=== PATIENT | female | born 2000 | race Caucasian/White ===

== ENCOUNTER 2023-10-26 10:06 | Inpatient (IN) | payer BC, SELFPAY ==
[2023-10-26] VITALS (17 sets, daily range): BP systolic 111–126; BP diastolic 56–78; PULSE 70–96; RESP 16; TEMP 36.2–36.7; O2SAT 98–100; BMI 28.1
[2023-10-26 10:06] LABS: ROM Internal Control Test YES-OK TO RESULT pt. (Internal QC)
[2023-10-26 10:08] LABS: ROM Patient Test POSITIVE (Negative); Record Kit Lot#, ROM+ K1374
[2023-10-26] MEDS: 0.9% Saline Lock 10 ML Syringe IV (10:20)
[2023-10-26 10:31] LABS: Mucous, Urine 0 SEEN /hpf (<or=2+)
[2023-10-26 10:37] LABS: Absolute Lymphocyte Count 1.52 X10^3/uL (0.83-4.51); Absolute Neutrophil Count 15.2 X10^3/uL (2.0-7.7); Basophil# 0.05 X10^3/uL; Basophil% 0.3 % (0-1); Hematocrit 32.3 % (37-47); Hemoglobin 10.4 g/dL (12.0-15.0); Lymphocyte # 1.52 X10^3/ul (0.83-4.51); Lymphocyte % 8.3 % (19-41); Mean Corp Hgb Conc 32.2 g/dL (32-36); Mean Corpuscular Hgb 27.7 pg (27.0-32.0); Mean Corpuscular Volume 85.9 fL (81-99); Mean Platelet Vol. 12.8 fl (6.2-12.0); Monocyte# 1.28 X10^3/uL; NRBC Flagged by Analyzer 0 % (0-5); Neutrophil # 15.22 X10^3/uL (2.7-7.7); Neutrophil % 83.6 % (47-70); Platelet Count 202 K/mm3 (150-450); RBC Distribution Width CV 13.9 % (11.6-14.6); RBC Distribution Width SD 42.8 fl (35.1-43.9); Red Blood Count 3.76 M/mm3 (4.2-5.4); White Blood Count 18.2 K/mm3 (4.4-11.0)
[2023-10-26 10:45] LABS: Color, Urine Yellow (Yellow); Glucose, Dipstick Normal (Normal); Leukocyte Esterase-Dipstick 500 /ul (Negative); Nitrite-Dipstick Negative (Negative); Occult Blood-Urine 250 /ul (Negative); Protein-Dipstick 30 mg/dl (Negative); Specific Gravity, Urine 1.015 (1.002-1.030); Urine Bilirubin Dipstick Negative (Negative); Urine Clarity Sl. Cloudy (Clear); Urine Urobilinogen Normal (Normal)
[2023-10-26 10:47] LABS: Ketone-Dipstick 150 mg/dl (Negative)
[2023-10-26 10:54] LABS: Bacteria 1+ /hpf (None Seen); Red Blood Cells-Urine 25-50 SEEN /hpf (0-5); Squamous Epithelial Cells - UA 0-5 SEEN /hpf (5-10); White Blood Cells 25-50 SEEN /hpf (0-5)
[2023-10-26 11:05] LABS: Amphetamine Urine VISTA NEGATIVE (<1000 ng/mL); Barbiturate Urine VISTA NEGATIVE (< 200 ng/mL); Benzodiazepine Urine VISTA NEGATIVE (< 200 ng/mL); Cocaine Urine VISTA NEGATIVE (< 300 ng/mL); Ecstacy Urine VISTA NEGATIVE (< 500 ng/mL); Methadone Urine VISTA NEGATIVE (< 300 ng/mL); PCP Urine VISTA NEGATIVE (< 25 ng/mL); THC Urine VISTA NEGATIVE (< 50 ng/mL); Vista UDS pH Range 5
[2023-10-26 11:18] LABS: HIV - WCH Non-Reactive (Nonreactive); Rubella IgG Reactive (Nonreactive); Syphilis Antibodies Non-reactive
[2023-10-26 11:43] LABS: Hepatitis C Antibody Non-Reactive (Nonreactive)
--- NOTE | 2023-10-26 13:18 | PN.OBGYN_ITS ---
Subjective Subjective Patient seen at bedside. Using nitrous for pain control. Objective Data Objective Data Vital Signs: Vital Signs Temp Pulse Resp BP Pulse Ox 97.9 F 83 16 117/61 100 10/26/23 13:07 10/26/23 11:22 10/26/23 12:00 10/26/23 11:22 10/26/23 10:31 Weight: 180 lb Body Mass Index (BMI) 28.1 Lab / Micro Data 10/26/23 10:20 Labs: Laboratory Results - last 24 hr 10/26/23 09:45: Vag Amniotic Fld Detect POSITIVE H 10/26/23 10:20: WBC 18.2 H, RBC 3.76 L, Hgb 10.4 L, Hct 32.3 L, MCV 85.9, MCH 27.7, MCHC 32.2, RDW Std Deviation 42.8, RDW Coeff of Romana 13.9, Plt Count 202, MPV 12.8 H, Immature Gran % (Auto) 0.800, Neut % (Auto) 83.6 H, Lymph % (Auto) 8.3 L, [place] % (Auto) 7.0, Eos % (Auto) 0.0, Baso % (Auto) 0.3, Absolute Neuts (auto) 15.2 H, Absolute Lymphs (auto) 1.52, Nucleated RBC % 0, Urine Color Yellow, Urine Clarity Sl. Cloudy, Urine pH 5.0, Ur Specific [place] 1.015, Urine Protein 30 H, Urine Glucose (UA) Normal, Urine Ketones 150 A*, Urine Occult Blood 250 H, Urine Nitrite Negative, Urine Bilirubin Negative, Urine Urobilinogen Normal, Ur Leukocyte Esterase 500 H, Urine RBC 25-50 SEEN, Urine WBC 25-50 SEEN, Ur Squamous Epith Cells 0-5 SEEN, Urine Bacteria 1+, Urine Mucus 0 SEEN, Urine Opiates Screen NEGATIVE, Urine Methadone Screen NEGATIVE, Ur Barbiturates Screen NEGATIVE, Ur Phencyclidine Scrn NEGATIVE, Ur Amphetamines Screen NEGATIVE, MDMA (Ecstasy) Screen NEGATIVE, U Benzodiazepines Scrn NEGATIVE, Urine Cocaine Screen NEGATIVE, U Cannabinoids Screen NEGATIVE, Ur Drug Screen Comment , Syphilis Total Ab Non-reactive 10/26/23 10:20: Syphilis Total Ab Cancelled, Hepatitis C Antibody Non-Reactive, HIV 1&2 Antibody Non-Reactive, Rubella IgG Antibody Reactive, Blood Type A POSITIVE, Antibody Screen NEGATIVE Micro: Microbiology 10/26/23 10:20 Interface Orders Chlamydia trachomatis (PCR) - Final 10/26/23 10:20 Interface Orders Neisseria gonorrhoeae (PCR) - Final Assessment & Plan (1) 41 weeks gestation of : (2) Spontaneous onset of labor: (3) Spontaneous rupture of amniotic membranes: PLAN: Plan GBS unknown NST reactive CE Forebag ruptured for clear fluid Using nitrous oxide for pain control Anticipate Dr. Conklin on unit to evaluate patient at bedside
[2023-10-26] MEDS: Oxytocin 10 UNITS/ML Vial IM (14:00)
--- NOTE | 2023-10-26 14:07 | HP.PCM.OB_ITS ---
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 today this morning and has been about 6cm since 7am. pt reports has had 4 ultrasounds during , denies any medical conditions, does not take any medications. PFSH PFSH Medical History no medical history Allergy/AdvReac Type Severity Reaction Status Date / Time No Known Allergies Allergy Verified 10/26/23 09:48 Surgical History (Updated 10/26/23 @ 10:25 by Judy Kay) History of surgery Vital Signs Vital Signs Vital Signs: 10/26/23 09:50 10/26/23 09:50 10/26/23 10:21 Temperature Temperature Source Pulse Rate 80 96 Respiratory Rate Blood Pressure 118/62 BP Systolic 118 BP Diastolic 62 Pulse Ox 10/26/23 10:21 10/26/23 10:26 10/26/23 10:26 Temperature Temperature Source Pulse Rate 83 Respiratory Rate Blood Pressure BP Systolic BP Diastolic Pulse Ox 98 98 10/26/23 10:31 10/26/23 10:31 10/26/23 11:09 Temperature Temperature Source Temporal Pulse Rate 85 Respiratory Rate Blood Pressure BP Systolic BP Diastolic Pulse Ox 100 10/26/23 11:09 10/26/23 11:22 10/26/23 11:22 Temperature 97.8 F Temperature Source Pulse Rate 83 Respiratory Rate Blood Pressure 117/61 BP Systolic 117 BP Diastolic 61 Pulse Ox 10/26/23 12:00 10/26/23 12:00 10/26/23 12:00 Temperature 97.1 F L Temperature Source Temporal Pulse Rate Respiratory Rate 16 Blood Pressure BP Systolic BP Diastolic Pulse Ox 10/26/23 13:07 10/26/23 13:07 Temperature 97.9 F Temperature Source Temporal Pulse Rate Respiratory Rate Blood Pressure BP Systolic BP Diastolic Pulse Ox Weight Weight: 81.647 kg Body Mass Index (BMI) 28.1 Physical Exam Narrative upon my arrival pt was 10/100/+2 EFW 7.5lbs Const alert and oriented x3 General Appearance: cooperative HEENT normocephalic GI GI Narrative: Gravid, non tender to palpation. OB / External & Speculum: external exam normal Extremity normal to inspection Skin no rashes or lesions noted Neuro oriented x3 and CN's II-XII intact bilaterally Psych Appearance: grossly normal Labs Labs Labs: Blood Type A POSITIVE Antibody Screen NEGATIVE Hct 32.3 % (37-47) L Hgb 10.4 g/dL (12.0-15.0) L Syphilis Total Ab Non-reactive Rubella IgG Antibody Reactive (Nonreactive) Hepatitis C Antibody Non-Reactive (Nonreactive) HIV 1&2 Antibody Non-Reactive (Nonreactive) Assessment & Plan (1) Spontaneous rupture of amniotic membranes: (2) Spontaneous onset of labor: (3) 41 weeks gestation of : (4) No care in current in third trimester: PLAN: Plan Admit to L&D Montior FHR/TOCO Epidural if requested for pain Monitor VS Anticipate labs
--- NOTE | 2023-10-26 14:10 | OP.PCM_ITS ---
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 The baby was then placed on the mother's chest for immediate skin to skin. Delayed cord clamping was performed until the cord was then pulsating per mother's request. The infant was vigorous at time of delivery. The cord was then clamped and cut. IM Pitocin was given. The placenta was delivered intact without complication. Vagina and perineum were intact. No other complications Presentation: Vertex Amniotic Membrane Rupture Type: Spontaneous Amniotic Fluid Description: Clear Placental Delivery Description: Spontaneous Placenta Disposition: patient wants to take home Specimen(s) Removed: placenta Cord Vessel Description: 3 Vessels Cord Entanglement: None A Gender: Female (1 minute): 8 (5 minute): 9 Delayed Cord Clamping: Yes Post Vaginal Delivery Medications Given After Delivery: IM Pitocin Episiotomy Description: None Laceration: None Complication Complications: None
[2023-10-27 01:06] VITALS: BP 114/68; PULSE 66; RESP 16; TEMP 36.6
[2023-10-27 04:53] VITALS: BP 121/70; PULSE 79; RESP 16; TEMP 36.7
--- NOTE | 2023-10-27 08:33 | PCM.PN.CNM ---
Subjective Subjective Patient seen at bedside. Denies pain. Ambulating and voiding without difficulty. with minimal support. Lochia decreasing. Anticipate discharge home tomorrow. Objective Data Objective Data Vital Signs: Vital Signs Temp Pulse Resp BP Pulse Ox 98.1 F 79 16 121/70 H 100 10/27/23 04:53 10/27/23 04:53 10/27/23 04:53 10/27/23 04:53 10/26/23 10:31 Weight: 180 lb Body Mass Index (BMI) 28.1 Intake & Output: Intake and Output for Last 24 Hours 10/25/23 10/26/23 10/27/23 23:59 23:59 23:59 Output Total 1350 / 1350 Balance -1350 / -1350 Lab / Micro Data 10/26/23 10:20 Labs: Laboratory Results - last 24 hr 10/26/23 09:45: Vag Amniotic Fld Detect POSITIVE H 10/26/23 10:20: WBC 18.2 H 10/26/23 10:20: WBC Cancelled, Corrected WBC Cancelled, RBC 3.76 L 10/26/23 10:20: RBC Cancelled, Hgb 10.4 L 10/26/23 10:20: Hgb Cancelled, Hct 32.3 L 10/26/23 10:20: Hct Cancelled, MCV 85.9 10/26/23 10:20: MCV Cancelled, MCH 27.7 10/26/23 10:20: MCH Cancelled, MCHC 32.2 10/26/23 10:20: MCHC Cancelled, RDW Std Deviation 42.8 10/26/23 10:20: RDW Std Deviation Cancelled, RDW Coeff of Romana 13.9 10/26/23 10:20: RDW Coeff of Romana Cancelled, Plt Count 202 10/26/23 10:20: Plt Count Cancelled, MPV 12.8 H 10/26/23 10:20: MPV Cancelled, Immature Gran % (Auto) 0.800 10/26/23 10:20: Immature Gran % (Auto) Cancelled, Neut % (Auto) 83.6 H 10/26/23 10:20: Neut % (Auto) Cancelled, Lymph % (Auto) 8.3 L 10/26/23 10:20: Lymph % (Auto) Cancelled, [place] % (Auto) 7.0 10/26/23 10:20: [place] % (Auto) Cancelled, Eos % (Auto) 0.0 10/26/23 10:20: Eos % (Auto) Cancelled, Baso % (Auto) 0.3 10/26/23 10:20: Baso % (Auto) Cancelled, Absolute Neuts (auto) 15.2 H 10/26/23 10:20: Absolute Neuts (auto) Cancelled, Absolute Lymphs (auto) 1.52 10/26/23 10:20: Absolute Lymphs (auto) Cancelled, Total Counted Cancelled, Neutrophils % (Manual) Cancelled, Band Neutrophils % Cancelled, Lymphocytes % (Manual) Cancelled, Monocytes % (Manual) Cancelled, Eosinophils % (Manual) Cancelled, Basophils % (Manual) Cancelled, Metamyelocytes % Cancelled, Myelocytes % Cancelled, Promyelocytes % Cancelled, Blast Cells % Cancelled, Plasma Cell % (Manual) Cancelled, Other Cells % Cancelled, Nucleated RBC % 0 10/26/23 10:20: Nucleated RBC % Cancelled, Nucleated RBCs/100 WBC Cancelled, Differential Comment Cancelled, Diff Path Review Cancelled, Hypersegmented Neuts Cancelled, Atypical Lymphocytes Cancelled, Reactive Lymphocytes Cancelled, Smudge Cells Cancelled, Toxic Granulation Cancelled, Toxic Vacuolation Cancelled, Dohle Bodies Cancelled, Jairo Rods Cancelled, Platelet Estimate Cancelled, Plt Morphology Comment Cancelled, RBC Morphology Cancelled 10/26/23 10:20: RBC Morphology Cancelled, Polychromasia Cancelled, Hypochromasia Cancelled, Basophilic Stippling Cancelled, Anisocytosis Cancelled, Microcytosis Cancelled, Macrocytosis Cancelled, Spherocytes Cancelled, Sickle Cells Cancelled, Target Cells Cancelled, Tear Drop Cells Cancelled, Ovalocytes Cancelled, Stomatocytes Cancelled, [employer] Bodies Cancelled, Obdulio Cells Cancelled, Bite Cells Cancelled, Crenated Cell Cancelled, Acanthocytes (Spur) Cancelled, Rouleaux Cancelled, Schistocytes Cancelled, Urine Color Yellow, Urine Clarity Sl. Cloudy, Urine pH 5.0, Ur Specific [place] 1.015, Urine Protein 30 H, Urine Glucose (UA) Normal, Urine Ketones 150 A*, Urine Occult Blood 250 H, Urine Nitrite Negative, Urine Bilirubin Negative, Urine Urobilinogen Normal, Ur Leukocyte Esterase 500 H, Urine RBC 25-50 SEEN, Urine WBC 25-50 SEEN, Ur Squamous Epith Cells 0-5 SEEN, Urine Bacteria 1+, Urine Mucus 0 SEEN, Urine Opiates Screen NEGATIVE, Urine Methadone Screen NEGATIVE, Ur Barbiturates Screen NEGATIVE, Ur Phencyclidine Scrn NEGATIVE, Ur Amphetamines Screen NEGATIVE, MDMA (Ecstasy) Screen NEGATIVE, U Benzodiazepines Scrn NEGATIVE, Urine Cocaine Screen NEGATIVE, U Cannabinoids Screen NEGATIVE, Ur Drug Screen Comment , Syphilis Total Ab Non-reactive 10/26/23 10:20: Syphilis Total Ab Cancelled, Hepatitis C Antibody Non-Reactive, HIV 1&2 Antibody Non-Reactive, Rubella IgG Antibody Reactive, Blood Type A POSITIVE, Antibody Screen NEGATIVE Micro: Microbiology 10/26/23 10:20 Interface Orders Chlamydia trachomatis (PCR) - Final 10/26/23 10:20 Interface Orders Neisseria gonorrhoeae (PCR) - Final ROS Eyes Eyes: Denies blurry vision, change in vision or spots in vision ENT HEENT: Denies dizziness or headache(s) Cardiovascular Cardiovascular: Denies abdominal pain, chest pain or dyspnea Respiratory/Chest Respiratory/Chest: Denies cough, dyspnea, shortness of breath at rest or shortness of breath with exertion Gastrointestinal Gastrointestinal: Denies abdominal pain, diarrhea or vomiting Genitourinary Genitourinary: Denies change in urinary stream, difficulty urinating or dysuria Musculoskeletal Musculoskeletal: Reports none Integumentary Integumentary: Denies rash Neurologic Neurologic: Denies dizziness, headache(s), memory loss or weakness Physical Exam Const alert and no apparent distress General Appearance: cooperative and comfortable Exam Limitations: no limitations HEENT normocephalic Eyes General Eye: normal appearance of both eyes Neck full ROM General: normal visual inspection Chest Chest: symmetrical chest wall rise Resp normal respiratory effort and normal air movement Effort and Inspection: symmetric chest movement Auscultation: clear to auscultation bilaterally Cardio regular rate and regular rhythm GI normal to inspection, nondistended, normoactive bowel sounds Back/Spine normal ROM Extremity full ROM and no calf tenderness General Extremity: normal exam except as noted Skin no rashes or lesions noted Neuro CN's II-XII intact bilaterally Psych mental status grossly normal Assessment & Plan (1) (spontaneous vaginal delivery): (2) Care and examination of lactating mother: (3) No care in current in third trimester: PLAN: Plan PPD 1 Routine care support Anticipate discharge home after 36 hours due to unknown GBS status
[2023-10-27 09:00] VITALS: BP 106/62; PULSE 58; RESP 14; TEMP 36.6; O2SAT 100
[2023-10-27 15:01] VITALS: BP 122/79; PULSE 58; RESP 14; TEMP 36.4; O2SAT 100
[2023-10-27 20:08] VITALS: BP 117/78; PULSE 73; RESP 18; TEMP 36.7; O2SAT 100
[2023-10-27 22:02] LABS: Hepatitis B Surface Antigen Non-Reactive (Nonreactive)
[2023-10-28 03:15] VITALS: BP 118/84; PULSE 69; RESP 16; TEMP 36.6; O2SAT 100
--- NOTE | 2023-10-28 06:40 | PCM.DC.SUM ---
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 Hospital course was uneventful. Physical Exam Narrative Patient seen at bedside. Ambulating and voiding without difficulty. Lochia decreasing. Denies pain. with minimal support. Desires discharge home. Const alert and no apparent distress General Appearance: cooperative and comfortable Exam Limitations: no limitations HEENT normocephalic Eyes General Eye: normal appearance of both eyes Neck full ROM General: normal visual inspection Chest Chest: symmetrical chest wall rise Resp normal respiratory effort and normal air movement Effort and Inspection: symmetric chest movement Auscultation: clear to auscultation bilaterally Cardio regular rate and regular rhythm GI normal to inspection, nondistended, normoactive bowel sounds Back/Spine normal ROM Extremity full ROM and no calf tenderness General Extremity: normal exam except as noted Skin no rashes or lesions noted Neuro CN's II-XII intact bilaterally Psych mental status grossly normal Weight / BMI Weight Weight: 180 lb Body Mass Index (BMI) 28.1 ABG / Lab / Microbiology Data 10/26/23 10:20 Laboratory: Laboratory Results - last 24 hr 10/26/23 10:20: Hep Bs Antigen Non-Reactive Microbiology: Microbiology 10/26/23 10:20 Interface Orders Chlamydia trachomatis (PCR) - Final 10/26/23 10:20 Interface Orders Neisseria gonorrhoeae (PCR) - Final D/C Instructions Discharge Diet: No restrictions Discharge Activity: Return to Normal Activity, May Shower and May Take a Tub Bath May resume sexual activity in: 4-6 weeks Weight Bearing Status: Weight bearing as tolerated Call your doctor if you observe: Fever of 101 or Higher, Inability to urinate, Using more than 1 pad per hour, Shortness of breath, Dizziness, Swelling in the ankles, Chest pain, Calf discomfort and Uncontrolled pain Additional Instructions: [facility] [place] office # [phone] Please Follow Up With: Karyn Ellis CNM When: 2 weeks and again at 6 weeks post Meaningful Use Info Meaningful Use Diagnoses (Choose all that apply): None applicable Discharge Plan Admission Admit Date/Time: 10/26/23 10:06 Primary Reason for Your Visit: Labor and Delivery Attending Provider: Charlene Conklin Primary Care Provider: Care Physician,No Primary Discharge Orders/Prescriptions Prescriptions: New acetaminophen 500 mg Tablet 1,000 mg PO Q6H PRN PRN (Reason: Pain 1-10 Or Fever) Qty: 0 0RF ibuprofen 600 mg Tablet 600 mg PO Q6H PRN PRN (Reason: Pain Score 1-10) Qty: 0 0RF Referrals / Follow Up: Karyn Ellis CNM [Med Staff - Adv Practice Prof] - Care Physician,No Primary [Primary Care Provider] - Disposition Disposition (needs filled in before D/C Order can be placed): Home, Self Care
[2023-10-28 07:30] VITALS: BP 123/70; PULSE 86; RESP 16; TEMP 36.9; O2SAT 100
--- NOTE | 2024-01-29 08:11 | NURSING ---
Edited /para for accuracy
== END 2023-10-28 08:35 | disposition home or self-care (01) | DRG 807 ==
LOC: WPOUT 10:06 → WP 10:06
PROVIDERS: Advanced Practice Midwife; Admitting Provider Obstetrics & Gynecology; Referring Provider Obstetrics & Gynecology; Visit Provider Obstetrics & Gynecology
DX: O48.0 Post-term pregnancy (principal); Z37.0 Single live birth; Z3A.41 41 weeks gestation of pregnancy
CPT/HCPCS: 59025; 59050; 80307; 81001; 84112; 85025; 86703; 86762; 86780; 86803; 86850; 86900; 86901; 87340; 87491; 87591; 99221; A4216; G0378